=== PATIENT | male | born 1970 | race Two or more races ===

== ENCOUNTER 2017-04-06 23:39 | Emergency (ER) | payer OTHER ==
[~2017-04-06] VITALS: Ht 167.6 cm; Wt 102.3 kg
[~2017-04-06 23:39] MED LIST: HYDR1TAB12 PO
[2017-04-07] MEDS ORDERED: ALBUTEROL/IPRATROPIUM 2.5MG/0.5MG, 3 ML NPPB ONE
[2017-04-07] MEDS ORDERED: ALBUTEROL/IPRATROPIUM 2.5MG/0.5MG, 3 ML ONE (00:23)
[2017-04-07] MEDS ORDERED: IBUPROFEN 200 MG TABLET ONE (00:24)
[2017-04-07] MEDS ORDERED: IBUPROFEN 200 MG TABLET PO ONE (00:30)
[2017-04-07 00:34] VITALS: BP 125/79
== END 2017-04-07 02:25 | disposition home or self-care (01) ==
LOC: ED 04-07 02:10
DX: J20.9 Acute bronchitis, unspecified (principal); J45.909 Unspecified asthma, uncomplicated
CPT/HCPCS: 71020; 93005; 94640; 99284; J7512; J7620

== ENCOUNTER 2017-10-02 20:53 | Emergency (ER) | payer SELFPAY ==
[~2017-10-02] VITALS: Ht 160 cm; Wt 91.5 kg
[2017-10-02] MEDS ORDERED: ONDANSETRON ODT 4 MG PO ONE (21:30)
[2017-10-02 21:32] LABS: BASOPHILS # (AUTO) 0.14 x10^3/uL (0-0.1); BASOPHILS % (AUTO) 3 % (0-1); EOSINOPHILS # (AUTO) 0.07 x10^3/uL (0-0.4); EOSINOPHILS % (AUTO) 1 % (1-7); LYMPHOCYTES # (AUTO) 1.79 x10^3/uL (1-3.4); LYMPHOCYTES % (AUTO) 34 % (22-44); MD NO; MEAN CORPUSCULAR HEMOGLOBIN 30.2 pg (27.5-34.5); MEAN CORPUSCULAR HGB CONC 33.7 g/dL (33.2-36.2); MEAN CORPUSCULAR VOLUME 89.5 fL (81-97); MEAN PLATELET VOLUME 7.5 fL (7.4-10.4); MONOCYTES # (AUTO) 0.39 x10^3/uL (0.2-0.8); MONOCYTES % (AUTO) 7 % (2-9); NEUTROPHILS # (AUTO) 2.89 x10^3/uL (1.8-6.8); NEUTROPHILS % (AUTO) 55 % (42-75); PLATELET COUNT 340 x10^3/uL (130-400); RED BLOOD COUNT 5.12 x10^6/uL (4.38-5.82); RED CELL DISTRIBUTION WIDTH 13.6 % (9.4-14.8)
[2017-10-02 21:44] LABS: ALANINE AMINOTRANSFERASE 30 U/L (12-78); ALBUMIN 3.8 g/dL (3.4-5.0); ANION GAP 6 mmol/L (5-15); CALCIUM 8.9 mg/dL (8.5-10.1); CHLORIDE 104 mmol/L (98-107); CREATININE 1.02 mg/dL (0.7-1.3)
[2017-10-02 21:49] LABS: ALKALINE PHOSPHATASE 73 U/L (45-117); BILIRUBIN,TOTAL 0.3 mg/dL (0.2-1.0); TOTAL PROTEIN 7.7 g/dL (6.4-8.2); TROPONIN I < 0.015 ng/mL (0.000-0.045)
[2017-10-02] MEDS ORDERED: ONDANSETRON ODT 4 MG ONE (21:56)
[2017-10-02 22:17] LABS: MICROSCOPIC NOT IND
[2017-10-02 22:22] LABS: CULTURE INDICATED? NO
[2017-10-02] MEDS ORDERED: METHYLNALTREXONE 12 MG/0.6 ML SQ ONE ×2 (23:00→23:23)
[2017-10-02 23:39] VITALS: BP 131/81
== END 2017-10-02 23:58 | disposition home or self-care (01) ==
LOC: ED 21:54
DX: R10.84 Generalized abdominal pain (principal); K59.00 Constipation, unspecified; R00.2 Palpitations; F17.200 Nicotine dependence, unspecified, uncomplicated; R30.0 Dysuria
CPT/HCPCS: 36415; 74022; 80053; 81003; 83690; 84484; 85025; 93005; 96372; 99285; Q0162

== ENCOUNTER 2017-10-13 06:35 | Emergency (ER) | payer SELFPAY ==
[~2017-10-13] VITALS: Ht 165.1 cm; Wt 91.3 kg
[2017-10-13] MEDS ORDERED: LACT10SO20 PO (07:09)
[2017-10-13] MEDS ORDERED: IBUP200T49 PO (07:09)
[2017-10-13] MEDS ORDERED: DIAZ2TAB3 PO (07:09)
[2017-10-13] MEDS ORDERED: FLUO20CA8 PO (07:09)
[2017-10-13] MEDS ORDERED: PROCHLORPERAZINE 5 MG/ML, 2ML ONE (07:18)
[2017-10-13] MEDS ORDERED: DIPHENHYDRAMINE 50 MG/ML, 1ML ONE (07:18)
[2017-10-13] MEDS ORDERED: KETOROLAC 30 MG/1 ML ONE (07:19)
[2017-10-13] MEDS ORDERED: PROCHLORPERAZINE 5 MG/ML, 2ML IVPush ONE (07:30)
[2017-10-13] MEDS ORDERED: KETOROLAC 30 MG/1 ML IVPush ONE (07:30)
[2017-10-13] MEDS ORDERED: SODIUM CHLORIDE FLUSH 10ML SYR IVF ONE (07:30)
[2017-10-13] MEDS ORDERED: DIPHENHYDRAMINE 50 MG/ML, 1ML IVPush ONE (07:30)
[2017-10-13] MEDS ORDERED: SODIUM CHLORIDE 0.9% 1,000ML IVBOLUS ONE (07:30)
[2017-10-13 07:46] LABS: BASOPHILS # (AUTO) 0.04 x10^3/uL (0-0.1); BASOPHILS % (AUTO) 1 % (0-1); EOSINOPHILS # (AUTO) 0.05 x10^3/uL (0-0.4); EOSINOPHILS % (AUTO) 1 % (1-7); LYMPHOCYTES # (AUTO) 0.98 x10^3/uL (1-3.4); LYMPHOCYTES % (AUTO) 28 % (22-44); MD NO; MEAN CORPUSCULAR HEMOGLOBIN 29.8 pg (27.5-34.5); MEAN CORPUSCULAR HGB CONC 33.7 g/dL (33.2-36.2); MEAN CORPUSCULAR VOLUME 88.4 fL (81-97); MONOCYTES # (AUTO) 0.24 x10^3/uL (0.2-0.8); MONOCYTES % (AUTO) 7 % (2-9); NEUTROPHILS # (AUTO) 2.25 x10^3/uL (1.8-6.8); NEUTROPHILS % (AUTO) 63 % (42-75); PLATELET COUNT 253 x10^3/uL (130-400); RED BLOOD COUNT 4.88 x10^6/uL (4.38-5.82); RED CELL DISTRIBUTION WIDTH 13.2 % (9.4-14.8)
[2017-10-13 07:56] LABS: ALANINE AMINOTRANSFERASE 21 U/L (12-78); ALBUMIN 3.8 g/dL (3.4-5.0); ANION GAP 7 mmol/L (5-15); CALCIUM 8.8 mg/dL (8.5-10.1); CHLORIDE 108 mmol/L (98-107); CREATININE 0.92 mg/dL (0.7-1.3)
[2017-10-13 07:58] LABS: ALKALINE PHOSPHATASE 74 U/L (45-117); BILIRUBIN,TOTAL 0.5 mg/dL (0.2-1.0); TOTAL PROTEIN 7.2 g/dL (6.4-8.2)
[2017-10-13 09:38] VITALS: BP 117/62
== END 2017-10-13 09:51 | disposition home or self-care (01) ==
LOC: ED 09:30
DX: J02.8 Acute pharyngitis due to other specified organisms (principal); B97.89 Other viral agents as the cause of diseases classified elsewhere; R10.13 Epigastric pain; K21.9 Gastro-esophageal reflux disease without esophagitis; F32.9 Major depressive disorder, single episode, unspecified
CPT/HCPCS: 36415; 76700; 80053; 83690; 85025; 96374; 96375; 99285; J0780; J1200; J1885; J7030

== ENCOUNTER 2018-05-31 21:14 | Emergency (ER) | payer SELFPAY ==
[~2018-05-31] VITALS: Ht 167.6 cm; Wt 82.7 kg
[~2018-05-31 21:14] MED LIST changes: +DIAZ2TAB3 PO; +FLUO20CA8 PO; +IBUP200T49 PO; +LACT10SO20 PO
[2018-05-31 21:47] LABS: MICROSCOPIC NOT IND
[2018-05-31 21:49] LABS: CULTURE INDICATED? NO
[2018-05-31] MEDS ORDERED: MAALOX/HYOSCYAMINE/LIDOCAINE 45 ML BTL ONE (21:58)
[2018-05-31] MEDS ORDERED: FAMOTIDINE 20 MG/2 ML ONE (21:58)
[2018-05-31] MEDS ORDERED: ONDANSETRON 2MG/ML, 2ML ONE (21:58)
[2018-05-31] MEDS ORDERED: MAALOX/HYOSCYAMINE/LIDOCAINE 45 ML BTL PO ONE (22:00)
[2018-05-31] MEDS ORDERED: FAMOTIDINE 20 MG/2 ML IVP ONE (22:00)
[2018-05-31] MEDS ORDERED: ONDANSETRON ODT 4 MG PO ONE (22:00)
[2018-05-31 22:07] LABS: BASOPHILS # (AUTO) 0.02 x10^3/uL (0-0.1); BASOPHILS % (AUTO) 1 % (0-1); EOSINOPHILS # (AUTO) 0.08 x10^3/uL (0-0.4); EOSINOPHILS % (AUTO) 2 % (1-7); LYMPHOCYTES # (AUTO) 1.72 x10^3/uL (1-3.4); LYMPHOCYTES % (AUTO) 41 % (22-44); MD NO; MEAN CORPUSCULAR HEMOGLOBIN 30.3 pg (27.5-34.5); MEAN CORPUSCULAR HGB CONC 34.1 g/dL (33.2-36.2); MEAN CORPUSCULAR VOLUME 88.6 fL (81-97); MEAN PLATELET VOLUME 8.1 fL (7.4-10.4); MONOCYTES # (AUTO) 0.44 x10^3/uL (0.2-0.8); MONOCYTES % (AUTO) 10 % (2-9); NEUTROPHILS # (AUTO) 1.97 x10^3/uL (1.8-6.8); NEUTROPHILS % (AUTO) 47 % (42-75); PLATELET COUNT 222 x10^3/uL (130-400); RED BLOOD COUNT 4.63 x10^6/uL (4.38-5.82); RED CELL DISTRIBUTION WIDTH 13.2 % (9.4-14.8)
[2018-05-31 22:21] LABS: ALANINE AMINOTRANSFERASE 18 U/L (12-78); ANION GAP 9 mmol/L (5-15); CALCIUM 8.3 mg/dL (8.5-10.1); CHLORIDE 103 mmol/L (98-107)
[2018-05-31 22:25] LABS: ALKALINE PHOSPHATASE 69 U/L (45-117); BILIRUBIN,TOTAL 0.6 mg/dL (0.2-1.0); TOTAL PROTEIN 7.5 g/dL (6.4-8.2); TROPONIN I < 0.015 ng/mL (0.000-0.045)
[2018-05-31] MEDS ORDERED: ONDANSETRON 2MG/ML, 2ML IVPush ONE (22:30)
--- NOTE | 2018-05-31 23:38 | NUR ---
PT STATES PAIN IS NOW MINIMAL. NAUSEA HAS SUBSIDED. POC DISCUSSED. PT UP FOR RECHECK AT THIS TIME.
[2018-06-01] MEDS ORDERED: ACETAMINOPHEN 500 MG TABLET PO ONE
[2018-06-01] MEDS ORDERED: ACETAMINOPHEN 500 MG TABLET ONE (00:04)
[2018-06-01 00:11] VITALS: BP 103/63
--- NOTE | 2018-06-01 00:28 | NUR ---
PT UP FOR DC FOR SOME TIME. NO DC INSTRUCTIONS PRINTED. MD NOT IN ED FOR SOME TIME. AWAITING MD FOR REPRINTING DC PAPERWORK. PT AND SPOUSE INFORMED AND APPOLOGIES GIVEN FOR WAIT.
== END 2018-06-01 00:38 | disposition home or self-care (01) ==
LOC: ED 23:10
DX: K25.7 Chronic gastric ulcer without hemorrhage or perforation (principal); F32.9 Major depressive disorder, single episode, unspecified
CPT/HCPCS: 36415; 76700; 80053; 81003; 83690; 84484; 85025; 93005; 96374; 96375; 99284; J2405; J3490

== ENCOUNTER 2018-08-29 17:19 | Emergency (ER) | payer OTHER ==
[~2018-08-29] VITALS: Ht 167.6 cm; Wt 82.2 kg
[~2018-08-29 17:19] MED LIST changes: -HYDR1TAB12 PO; +HYDR1TAB13 PO
--- NOTE | 2018-08-29 18:23 | NUR ---
FROM LOBBY TO ROOM AT THIS TIME
[2018-08-29 18:34] LABS: BASOPHILS # (AUTO) 0.02 x10^3/uL (0-0.1); BASOPHILS % (AUTO) 0 % (0-1); EOSINOPHILS # (AUTO) 0.05 x10^3/uL (0-0.4); EOSINOPHILS % (AUTO) 1 % (1-7); LYMPHOCYTES # (AUTO) 1.36 x10^3/uL (1-3.4); LYMPHOCYTES % (AUTO) 27 % (22-44); MD NO; MEAN CORPUSCULAR HEMOGLOBIN 30.8 pg (27.5-34.5); MEAN CORPUSCULAR HGB CONC 34.1 g/dL (33.2-36.2); MEAN CORPUSCULAR VOLUME 90.3 fL (81-97); MONOCYTES % (AUTO) 6 % (2-9); NEUTROPHILS # (AUTO) 3.28 x10^3/uL (1.8-6.8); NEUTROPHILS % (AUTO) 66 % (42-75); PLATELET COUNT 256 x10^3/uL (130-400); RED BLOOD COUNT 4.94 x10^6/uL (4.38-5.82); RED CELL DISTRIBUTION WIDTH 13.7 % (9.4-14.8)
[2018-08-29 18:40] LABS: ALBUMIN 4.2 g/dL (3.4-5.0); ANION GAP 5 mmol/L (5-15); CALCIUM 8.8 mg/dL (8.5-10.1); CHLORIDE 105 mmol/L (98-107)
[2018-08-29 18:44] LABS: ALANINE AMINOTRANSFERASE 23 U/L (12-78); ALKALINE PHOSPHATASE 74 U/L (45-117); CREATININE 0.95 mg/dL (0.7-1.3); TOTAL PROTEIN 7.5 g/dL (6.4-8.2)
--- NOTE | 2018-08-29 19:14 | NUR ---
REPORT FROM IOANA JOHNSON. ASSUMED CARE OF PATIENT AT THIS TIME.
[2018-08-29] MEDS ORDERED: MAALOX/HYOSCYAMINE/LIDOCAINE 45 ML BTL PO ONE (19:30)
[2018-08-29] MEDS ORDERED: ACETAMINOPHEN 500 MG TABLET PO ONE (19:30)
[2018-08-29] MEDS ORDERED: ONDANSETRON ODT 4 MG PO ONE (19:30)
[2018-08-29 20:05] LABS: TROPONIN I < 0.015 ng/mL (0.000-0.045)
[2018-08-29] MEDS ORDERED: ONDANSETRON ODT 4 MG ONE (20:10)
[2018-08-29] MEDS ORDERED: ACETAMINOPHEN 500 MG TABLET ONE (20:10)
[2018-08-29] MEDS ORDERED: MAALOX/HYOSCYAMINE/LIDOCAINE 45 ML BTL ONE (20:10)
--- NOTE | 2018-08-29 20:18 | NUR ---
VS UPDATED IN CHART, RESULTS BACK, CHART UP FOR RECHECK. MEDICATIONS ADMINISTERED PER MAR. PATIENT SITTING IN GURNEY WITH SPOUSE AT BEDSIDE, NAD NOTED. CALL LIGHT WITHIN REACH.
[2018-08-29] MEDS ORDERED: HYDROcodone/APAP 5/325 TABLET PO ONE (20:30)
--- NOTE | 2018-08-29 20:53 | NUR ---
NEW ORDERS, PATIENT STATES MEDICATIONS NOT HELPING, REFUSING NORCO AT THIS TIME. UA COLLECTED AND SENT TO LAB. FAMILY AT BEDSIDE. PATIENT SITTING IN OSCAR URIAS NOTED. CALL LIGHT WITHIN REACH.
[2018-08-29 21:03] LABS: MICROSCOPIC NOT IND
--- NOTE | 2018-08-29 21:20 | NUR ---
BS REPORT OF PT FROM IOANA MILLAN AND ASSUMING CARE OF PT AT THIS TIME.
--- NOTE | 2018-08-29 21:50 | NUR ---
PT D/C WITH D/C SUMMARY AND SCRIPTS. ALL QUESTIONS ANSWERED. PT AMBULATES TO REGISTRATION DESK WITH STEADY GAIT FOR D/C HOME WITH FAMILY. PT DENEIS ANY OTHER NEEDS PERTAINING TO THIS VISIT.
[2018-08-29 21:52] VITALS: BP 111/74
== END 2018-08-29 21:54 | disposition other institution (70) ==
LOC: ED 20:35
DX: K29.00 Acute gastritis without bleeding (principal); R10.31 Right lower quadrant pain; Z90.49 Acquired absence of other specified parts of digestive tract; F32.9 Major depressive disorder, single episode, unspecified
CPT/HCPCS: 36415; 74022; 80053; 81003; 83690; 84484; 85025; 93005; 99284; Q0162

== ENCOUNTER 2019-04-20 17:07 | Emergency (ER) | payer SELFPAY ==
[~2019-04-20] VITALS: Ht 167.6 cm; Wt 89.9 kg
--- NOTE | 2019-04-20 18:40 | NUR ---
ATTORNEY: PT TO ROOM FROM LOBBY
[2019-04-20] MEDS ORDERED: DEXAMETHASONE 4 MG TABLET ONE (19:58)
[2019-04-20] MEDS ORDERED: DEXAMETHASONE 4 MG TABLET PO ONE (20:00)
[2019-04-20] MEDS ORDERED: PROMETHAZINE/COD. 10MG/6.25MG/5 ML ORAL SOL PO PRN (20:00)
[2019-04-20 20:22] VITALS: BP 129/82
== END 2019-04-20 20:38 | disposition home or self-care (01) ==
LOC: ED 19:28
DX: R05 Cough (principal)
CPT/HCPCS: 71046; 99283

== ENCOUNTER 2020-01-10 23:20 | Emergency (ER) | payer SELFPAY ==
[~2020-01-10] VITALS: Ht 167.6 cm; Wt 89.7 kg
[~2020-01-10 23:20] MED LIST changes: +FLUO20CA23 PO; -FLUO20CA8 PO
--- NOTE | 2020-01-10 23:30 | NUR ---
EKG DONE IN TRIAGE
--- NOTE | 2020-01-10 23:34 | NUR ---
PT AMB TO ROOM STEADY GAIT WITH FAMILY
[2020-01-11] MEDS ORDERED: ONDANSETRON ODT 4 MG PO ONE
[2020-01-11] MEDS ORDERED: LORazepam 1MG TABLET PO ONE
--- NOTE | 2020-01-11 00:01 | NUR ---
49 YEAR OLD MALE TO ED FOR FACIAL NUMBNESS AND CHEST PAIN AND NAUSEA THAT OCCURED EARLIER BUT HAVE SINCE RESOLVED.
[2020-01-11] MEDS ORDERED: ONDANSETRON ODT 4 MG ONE (00:08)
[2020-01-11] MEDS ORDERED: LORazepam 1MG TABLET ONE (00:08)
[2020-01-11 00:36] LABS: ALANINE AMINOTRANSFERASE 34 U/L (12-78); ALBUMIN 3.6 g/dL (3.4-5.0); ANION GAP 7 mmol/L (5-15); CALCIUM 8.2 mg/dL (8.5-10.1); CHLORIDE 106 mmol/L (98-107); CREATININE 0.89 mg/dL (0.7-1.3)
[2020-01-11 00:38] LABS: BASOPHILS # (AUTO) 0.08 x10^3/uL (0-0.1); BASOPHILS % (AUTO) 2 % (0-1); EOSINOPHILS # (AUTO) 0.09 x10^3/uL (0-0.4); EOSINOPHILS % (AUTO) 2 % (1-7); LYMPHOCYTES # (AUTO) 1.27 x10^3/uL (1-3.4); LYMPHOCYTES % (AUTO) 31 % (22-44); MD NO; MEAN CORPUSCULAR HEMOGLOBIN 30.4 pg (27.5-34.5); MEAN CORPUSCULAR HGB CONC 33.4 g/dL (33.2-36.2); MEAN PLATELET VOLUME 8.4 fL (7.4-10.4); MONOCYTES # (AUTO) 0.27 x10^3/uL (0.2-0.8); MONOCYTES % (AUTO) 7 % (2-9); NEUTROPHILS # (AUTO) 2.36 x10^3/uL (1.8-6.8); NEUTROPHILS % (AUTO) 58 % (42-75); PLATELET COUNT 227 x10^3/uL (130-400); RED BLOOD COUNT 4.76 x10^6/uL (4.38-5.82); RED CELL DISTRIBUTION WIDTH 12.9 % (9.4-14.8)
[2020-01-11 00:41] LABS: ALKALINE PHOSPHATASE 97 U/L (45-117); BILIRUBIN,TOTAL 0.3 mg/dL (0.2-1.0); TROPONIN I < 0.015 ng/mL (0.000-0.045)
--- NOTE | 2020-01-11 01:34 | NUR ---
Break RN: assumed care of pt on behalf of primary RN for lunch break only. pt denies c/o after medications. resting on gurney in position of comfort. family member at bedside
[2020-01-11 02:27] VITALS: BP 106/69
[2020-01-11] MEDS ORDERED: MAALOX/HYOSCYAMINE/LIDOCAINE 45 ML BTL PO ONE (03:00)
[2020-01-11] MEDS ORDERED: MAALOX/HYOSCYAMINE/LIDOCAINE 45 ML BTL ONE (03:02)
== END 2020-01-11 03:23 | disposition home or self-care (01) ==
LOC: ED 01-11 00:18
DX: K29.00 Acute gastritis without bleeding (principal); F41.1 Generalized anxiety disorder; R11.0 Nausea; R07.89 Other chest pain; R94.31 Abnormal electrocardiogram [ECG] [EKG]
CPT/HCPCS: 36415; 70450; 80053; 84484; 85025; 93005; 99285; Q0162